=== PATIENT | female | born 1960 | race Caucasian/White ===

== ENCOUNTER 2020-08-24 17:28 | Emergency (ER) | payer OTHER ==
[~2020-08-24] VITALS: Ht 165.1 cm; Wt 81.7 kg
[~2020-08-24 17:28] MED LIST: ALEVE220 M1 PO; FLUCONAZOLE 10100 MG PO; NORCO 5-325 TA1 EACH PO; PROTONIX40 M2 PO
[2020-08-24 18:42] LABS: ABSOLUTE EOSINOPHILS 0.2 thou/uL (0.0-0.7); ABSOLUTE LYMPHOCYTES 2.4 thou/uL (0.8-5.3); ABSOLUTE MONOCYTES 0.4 thou/uL (0.0-1.2); ABSOLUTE NEUTROPHILS 7.8 thou/uL (1.6-8.1); BASOPHILS 0.4 %; EOSINOPHILS 1.7 %; HEMATOCRIT 46.2 % (37.0-47.0); HEMOGLOBIN 15.8 gm/dL (12.0-15.0); LYMPHOCYTES 21.8 %; MCH 31.1 pg (26.0-34.0); MCHC 34.2 g/dL (28.0-37.0); MCV 90.7 fL (80.0-100.0); MONOCYTES 4.1 %; MPV 8.5 fl. (7.2-11.1); NUCLEATED RBCS 0 /100WBC; PLATELET COUNT* 252 thou/uL (150-400); RBC 5.09 mil/uL (4.20-5.00); RDW-CV 12.6 % (10.5-14.5); WBC 10.9 thou/uL (4.0-11.0)
[2020-08-24 19:21] LABS: CALCIUM 9.3 mg/dL (8.5-10.1); CREATININE 1.1 mg/dL (0.6-1.3); POTASSIUM 3.8 mmol/L (3.5-5.1)
[2020-08-24 19:26] LABS: ALBUMIN 4.2 g/dL (3.4-5.0); TOTAL BILIRUBIN 0.7 mg/dL (<0.1-1.0); TOTAL PROTEIN 7.8 g/dL (6.4-8.2)
[2020-08-24] MEDS ORDERED: AUGMENTIN 875-1 EACH PO (21:21)
[2020-08-24] MEDS ORDERED: MECLIZINE HCL25 M1 PO (21:21)
[2020-08-24 21:38] VITALS: BP 120/76
--- NOTE | 2020-08-25 15:49 | EKG ---
[place] [address] ELECTROCARDIOGRAM REPORT Name: ALESIA MEDINA I [id number] Admission: 08/24/20 Attend Phys: Discharge: 08/24/20 Date of : 62 Date of Service: 08/24/20 174 Report #: [id number] THIS REPORT FOR: //name// [facility] ED Test Date: 2020-08-24 Test Time: 17:45:06 Pat Name: ALESIA MEDINA Department: Room: Gender: F Coding Manager: CCD : 1960 Requested By: Catia Sheth Order Number: [id number] MD: Carlitos Mendoza Measurements Intervals [place] Rate: 59 P: 74 HI: 165 QRS: 88 QRSD: 111 T: 39 QT: 447 QTc: 443 Interpretive Statements Sinus rhythm Minimal ST depression, inferior leads Baseline wander in lead(s) II,III,aVR,aVL,aVF,V2,V5 No previous ECG available for comparison Electronically Signed On 08-25-2020 15:49:43 CDT by Carlitos Mendoza [email or web address] <ELECTRONICALLY SIGNED> By: Carlitos Mendoza MD, FACC 08/25/20 1549 1745 1745 Carlitos Mendoza MD, [facility] /EPI
== END 2020-08-24 21:38 | disposition home or self-care (01) ==
LOC: M.ERS 17:28
PROVIDERS: Personal Emergency Response Attendant
DX: R42 Dizziness and giddiness (principal); Z98.890 Other specified postprocedural states